=== PATIENT | male | born 1995 | race Caucasian/White ===

== ENCOUNTER 2016-06-04 07:27 | Emergency (ER) | payer SELFPAY ==
[~2016-06-04] VITALS: Wt 111.0 kg
[~2016-06-04 07:27] MED LIST: BEN25 PO; CALAMINE TOP; IBUP-1542 PO; PEN500 PO; PRED50TA PO
[2016-06-04] MEDS ORDERED: KETOROLAC 60 MG INJ IM STA (08:03)
--- NOTE | 2016-06-04 08:10 | ERD ---
ER Documentation Chief Complaint Date/Time DATE: 06/04/16 TIME: 08:07 Chief Complaint LEFT KNEE PAIN FROM A FALL YESTERDAY NO DEFORMITY. LIMITED ROM HPI This patient is a 20-year-old male with no significant medical history presenting to the emergency department for left knee pain which occurred after injury yesterday while at work. The patient states he did not see a pothole stepped in it with his right foot and fell directly onto his left knee. The patient denies head injury, loss of consciousness, or other injuries. Patient rates his pain an 8 out of 10 on the pain scale and describes it as throbbing and constant in nature. The pain is exacerbated by ambulation. The patient has taken no medication at home for pain relief. The patient denies prior injuries. The patient denies any fevers, chills, other injuries, or other symptoms at this time. ROS All systems reviewed and are negative except as per history of present illness. Medications Home Meds Active Scripts Calamine* (Calamine*) 120 Ml Lotion, 1 APPLIC TOP Q4H for RASH for 7 Days, EA Prov:AVE HERCULES PA-C 04/19/16 Diphenhydramine Hcl* (Benadryl*) 25 Mg Cap, 25 MG PO Q6, #30 CAP Prov:AVE HERCULES PA-C 04/19/16 Ibuprofen* (Ibuprofen*) 600 Mg Tablet, 600 MG PO Q6H Y for PAIN, #30 TAB Prov:MC BEGUM PA-C 12/08/15 Prednisone* (Prednisone*) 50 Mg Tablet, 50 MG PO DAILY, #5 TAB Prov:LIBAN MEZA NP 11/11/15 Ibuprofen* (Motrin*) 600 Mg Tab, 600 MG PO Q6H Y for PAIN AND OR ELEVATED TEMP, #30 TAB Prov:LIBAN MEZA NP 11/11/15 Penicillin V Potassium* (Penicillin V K*) 500 Mg Tab, 500 MG PO QID for 10 Days , TAB Prov:LIBAN MEZA NP 11/11/15 Allergies Allergies: Coded Allergies: No Known Allergy (Unverified , 03/27/14) PMhx/Soc Medical and Surgical Hx: pt denies Medical Hx, pt denies Surgical Hx History of Surgery: No Anesthesia Reaction: No Hx Neurological Disorder: No Hx Respiratory Disorders: No Hx Cardiac Disorders: No Hx Psychiatric Problems: No Hx Miscellaneous Medical Probl: No Hx Alcohol Use: No Hx Substance Use: No Hx Tobacco Use: No Smoking Status: Never smoker FmHx Noncontributory for chief complaint Physical Exam Vitals Vital Signs Date Time Temp Pulse Resp B/P Pulse Ox O2 Delivery O2 Flow Rate FiO2 06/04/16 07:30 98.7 72 21 134/85 98 Physical Exam INITIAL VITAL SIGNS: Reviewed by me. GENERAL: Alert and interactive. No acute distress. HEAD: Head is normocephalic and atraumatic. EYES: EOMI. No scleral icterus. No conjunctival injection. ENT: Moist mucosa. NECK: Supple. Full range of motion. RESPIRATORY: Normal respiratory effort. Clear breath sounds bilaterally. No wheezing, rales, or rhonchi. CV: Regular rate and rhythm. Normal S1 S2. No S3 or S4. No murmurs. ABDOMEN: Soft, non-distended, non-tender. No guarding. No rebound. No masses. EXTREMITIES: There is tenderness to palpation of the lateral joint line of the left knee. There is limited range of motion secondary to pain. There is no erythema or warmth about the joint. The right lower extremity is normal on exam. SKIN: Warm and dry. NEUROLOGIC: Alert and oriented x 4. Speech is normal. Moves all extremities equally. No motor or sensory deficits noted. Results 24 hrs Current Medications Medications (Trade) Dose Ordered Sig/Maru Route PRN Reason Start Time Stop Time Status Last Admin Dose Admin Ketorolac Tromethamine (Toradol) 60 mg ONCE STAT IM 06/04/16 08:03 06/04/16 08:05 DC 06/04/16 08:24 Procedures/MDM 20-year-old male presents secondary to complaints of left knee pain after injury yesterday while at work. Physical examination there is some mild tenderness to palpation of the lateral joint line of the left knee. There is limited range of motion secondary to pain. I have ordered a 3 view x-ray of the left knee looking for any signs of fracture or other abnormalities. The patient was given 60 mg IM Toradol in the department and was feeling improved on reevaluation. At this time I have very low suspicion for septic joint, disseminated cellulitis, septicemia, or other emergent conditions. 3 view left knee x-ray interpreted by radiologist: PROCEDURE: Left knee x-ray CLINICAL INDICATION: knee injury/pain TECHNIQUE: AP, lateral and oblique views of the left knee were obtained. COMPARISON: None FINDINGS: There is normal mineralization. No acute fracture or dislocation is seen. There are no significant degenerative changes. There is no joint effusion. There is no significant soft tissue swelling. IMPRESSION: Normal x-ray of the left knee. Primary diagnosis: Knee injury The patient was discharged home with a prescription for naproxen for mild to moderate acute pain and [place] for moderate to severe acute pain. An CAROLYN wrap was applied in the department. The patient was able to ambulate in the department and declined the need for crutches at this time. The patient agreed with the discharge plan and diagnosis. All questions and concerns were addressed. Departure Diagnosis: Primary Impression: Knee injury Condition: Stable Additional Instructions: Follow-up with your primary care physician within 1 week. Return to the emergency department immediately should you have any new or worsening symptoms, uncontrolled fevers, or other unexplained symptoms. Take all medications as directed. ASHLYN VIDAL PA-C Jun 04, 2016 08:10
--- NOTE | 2016-06-04 08:38 | RADRPT ---
PROCEDURE: Left knee x-ray CLINICAL INDICATION: knee injury/pain TECHNIQUE: AP, lateral and oblique views of the left knee were obtained. COMPARISON: None FINDINGS: There is normal mineralization. No acute fracture or dislocation is seen. There are no significant degenerative changes. There is no joint effusion. There is no significant soft tissue swelling. IMPRESSION: Normal x-ray of the left knee. RPTAT:AAJJ Simone Subramanian Physician Date Time Electronically viewed and signed by Physician Karen on 06/04/2016 08:37 TUAN/
[2016-06-04] MEDS ORDERED: HYDR-906 PO (08:48)
[2016-06-04] MEDS ORDERED: NAPR-260 PO (08:48)
== END 2016-06-04 08:59 | disposition home or self-care (01) ==
LOC: FTE 07:27
DX: S89.92XA Unspecified injury of left lower leg, initial encounter (principal); W17.2XXA Fall into hole, initial encounter; Y92.89 Other specified places as the place of occurrence of the external cause
CPT/HCPCS: 73562; 96372; 99284; J1885

== ENCOUNTER 2016-08-12 07:48 | Emergency (ER) | payer MEDICAID ==
[~2016-08-12] VITALS: Ht 170.2 cm; Wt 100.0 kg
[~2016-08-12 07:48] MED LIST changes: +HYDR-906 PO; +NAPR-260 PO
[2016-08-12 07:49] VITALS: Ht 170.2 cm; Wt 100.0 kg
[2016-08-12] MEDS ORDERED: IBUPROFEN 600 MG TAB PO ONE (08:30)
--- NOTE | 2016-08-12 08:46 | ERD ---
ER Documentation Chief Complaint Date/Time DATE: 08/12/16 TIME: 08:45 Chief Complaint pt bib self with c/o "feeling weak x 1 wk, headache x 1 wk" HPI This is a 20-year-old male presents to the ER stating that for the last week he has felt dizzy. Patient states that he wakes up in the morning and he feels a spinning sensation. This episode lasted about an hour and goes away. He then gets multiple episodes throughout the day which only lasts a few minutes, they are worse whenever he moves his head. Patient is also complaining of a right- sided headache. He does admit to some photophobia. Headache is described as throbbing in quality it is not radiating. He has not tried any pain medications. He denies any nausea or vomiting he denies any trauma to the head. He denies any loss of consciousness. Patient denies any fevers or chills. He denies any cough or cold symptoms. He is also stating that he feels very weak and fatigued over the last week. ROS 12 point review of systems was done, all negative except per HPI. Medications Home Meds Active Scripts Meclizine Hcl* (Meclizine Hcl*) 25 Mg Tablet, 25 MG PO Q8H Y for DIZZINESS for 3 Days, TAB Prov:YVES MCGRATH 08/12/16 Naproxen* (Naprosyn*) 500 Mg Tablet, 500 MG PO BID Y for PAIN AND/OR INFLAMMATION, #30 TAB Prov:YVES MCGRATH 08/12/16 Naproxen* (Naprosyn*) 500 Mg Tablet, 500 MG PO BID Y for PAIN AND/OR INFLAMMATION, #20 TAB Prov:ASHLYN VIDAL PA-C 06/04/16 Hydrocodone/Acetaminophen ([place] 5-325 Tablet) 1 Each Tablet, 1 EACH PO prn for PAIN, #7 TAB Prov:ASHLYN VIDAL PA-C 06/04/16 Calamine* (Calamine*) 120 Ml Lotion, 1 APPLIC TOP Q4H for RASH for 7 Days, EA Prov:AVE HERCULES PA-C 04/19/16 Diphenhydramine Hcl* (Benadryl*) 25 Mg Cap, 25 MG PO Q6, #30 CAP Prov:AVE HERCULES PA-C 04/19/16 Ibuprofen* (Ibuprofen*) 600 Mg Tablet, 600 MG PO Q6H Y for PAIN, #30 TAB Prov:MC BEGUM PA-C 12/08/15 Prednisone* (Prednisone*) 50 Mg Tablet, 50 MG PO DAILY, #5 TAB Prov:LIBAN MEZA NP 11/11/15 Ibuprofen* (Motrin*) 600 Mg Tab, 600 MG PO Q6H Y for PAIN AND OR ELEVATED TEMP, #30 TAB Prov:LIBAN MEZA CORN SHUCKER 11/11/15 Penicillin V Potassium* (Penicillin V K*) 500 Mg Tab, 500 MG PO QID for 10 Days , TAB Prov:LIBAN MEZA CORN SHUCKER 11/11/15 Allergies Allergies: Coded Allergies: No Known Allergy (Unverified , 03/27/14) PMhx/Soc History of Surgery: No Anesthesia Reaction: No Hx Neurological Disorder: No Hx Respiratory Disorders: No Hx Cardiac Disorders: No Hx Psychiatric Problems: No Hx Miscellaneous Medical Probl: No Hx Alcohol Use: No Hx Substance Use: No Hx Tobacco Use: No Smoking Status: Never smoker Physical Exam Vitals Vital Signs Date Time Temp Pulse Resp B/P Pulse Ox O2 Delivery O2 Flow Rate FiO2 08/12/16 07:49 98.3 74 16 137/65 99 Physical Exam GENERAL: The patient is well developed and appropriate for usual state of health , in no apparent distress. HEENT: Atraumatic. Conjunctivae are pink. Pupils equal, round, and reactive to light. Extraocular muscles are grossly intact. No nystagmus. Bilateral tympanic membranes are clear with no evidence of erythema, bulging or perforation. NECK: C-spine is soft and supple. There is no cervical lymphadenopathy. CHEST: Clear to auscultation bilaterally. There are no rales, wheezes or rhonchi. HEART: Regular rate and rhythm. No murmurs, clicks, rubs or gallops. EXTREMITIES: Equal pulses bilaterally. There is no peripheral clubbing, cyanosis or edema. No focal swelling or erythema. Full range of motion. Grossly neurovascularly intact. NEURO: Alert and oriented. Cranial nerves II through XII are intact. Motor strength in all 4 extremities with 5/5 strength. Sensation grossly intact. Normal speech and gait. Negative [place]. +2 DTRs. SKIN: There is no apparent rash or petechia. The skin is warm and dry. Result Diagram: 08/12/16 0840 08/12/16 0840 Results 24 hrs Laboratory Tests Test 08/12/16 08:40 White Blood Count 7.610^3/ul Red Blood Count 5.1610^6/ul Hemoglobin 14.9g/dl Hematocrit 44.9% Mean Corpuscular Volume 87.0fl Mean Corpuscular Hemoglobin 28.9pg Mean Corpuscular Hemoglobin Concent 33.2g/dl Red Cell Distribution Width 12.9% Platelet Count 65392^3/UL Mean Platelet Volume 10.8fl Neutrophils % 63.9% Lymphocytes % 26.2% Monocytes % 6.7% Eosinophils % 2.5% Basophils % 0.4% Nucleated Red Blood Cells % 0.0/100WBC Neutrophils # 4.910^3/ul Lymphocytes # 2.010^3/ul Monocytes # 0.510^3/ul Eosinophils # 0.210^3/ul Basophils # 0.010^3/ul Nucleated Red Blood Cells # 0.010^3/ul Urine Color LT. YELLOW Urine Clarity CLEAR Urine pH 5.5 Urine Specific [employer] >=1.030 Urine Ketones NEGATIVE Urine Nitrite NEGATIVE Urine Bilirubin NEGATIVE Urine Urobilinogen 0.2 E.U./dL Urine Leukocyte Esterase NEGATIVE Urine Hemoglobin NEGATIVE Urine Glucose NEGATIVE% Urine Total Protein NEGATIVE Sodium Level 141mmol/L Potassium Level 4.3mmol/L Chloride Level 108mmol/L Carbon Dioxide Level 24mmol/L Anion Gap 13 Blood Urea Nitrogen 13mg/dl Creatinine 0.84mg/dl Glucose Level 97mg/dl Calcium Level 9.1mg/dl Total Bilirubin 0.3mg/dl Direct Bilirubin 0.00mg/dl Indirect Bilirubin 0.3mg/dl Aspartate Amino Transf (AST/SGOT) 21IU/L Alanine Aminotransferase (ALT/SGPT) 42IU/L Alkaline Phosphatase 95IU/L Total Protein 7.2g/dl Albumin 4.3g/dl Globulin 2.90g/dl Albumin/Globulin Ratio 1.48 Current Medications Medications (Trade) Dose Ordered Sig/Maru Route PRN Reason Start Time Stop Time Status Last Admin Dose Admin Ibuprofen (Motrin) 600 mg ONCE ONCE PO 08/12/16 08:30 08/12/16 08:31 DC 08/12/16 08:40 Procedures/MDM EKG was taken [address] elevation or T-wave inversion. Read by Dr. Oliveira. Differential Diagnosis includes but is not limited to; Benign positional vertigo , labyrinthitis, vertigo, MS, acoustic neuroma, arrhythmia, anemia, hypoglycemia , infection, dehydration. At this time etiology of patient's dizziness is unknown however there is no evidence of arrhythmia, anemia, hypoglycemia, infection, dehydration. Patient's dizziness is worse with movement this may be benign positional vertigo. Episodes are short and I described as a spinning sensation. Patient will be sent home with meclizine. Regards to patient's headache it may be a migraine headache suspicion for intracranial pathology is low patient neurologically intact with no focal neurological deficits. He is afebrile and well-appearing. He does not have any meningeal signs. Patient is to follow-up with her primary care doctors within 1 to 2 days return to ER sooner if symptoms worsen. My medical decision making shared with the patient she understands and agrees with plan. Departure Diagnosis: Primary Impression: Dizziness Condition: Stable YVES MCGRATH Aug 12, 2016 08:46
[2016-08-12 09:04] LABS: ADD SCAN DIFF NO
[2016-08-12 09:07] LABS: BASOPHILS % 0.4 % (0.0-2.0); EOSINOPHILS # 0.2 10^3/ul (0.0-0.5); EOSINOPHILS % 2.5 % (0.0-7.0); HEMATOCRIT 44.9 % (42.0-52.0); HEMOGLOBIN 14.9 g/dl (14.0-18.0); LYMPHOCYTES % 26.2 % (15.0-51.0); MEAN CORPUSCULAR HEMOGLOBIN 28.9 pg (29.0-33.0); MEAN CORPUSCULAR HGB CONC 33.2 g/dl (32.0-37.0); MEAN PLATELET VOLUME 10.8 fl (7.4-10.4); MONOCYTE # 0.5 10^3/ul (0.3-0.9); MONOCYTES % 6.7 % (0.0-11.0); NEUTROPHIL # 4.9 10^3/ul (1.6-7.5); NEUTROPHILS % 63.9 % (39.0-77.0); PLATELET COUNT 237 10^3/UL (140-415); RED BLOOD COUNT 5.16 10^6/ul (4.70-6.10); RED CELL DISTRIBUTION WIDTH 12.9 % (11.5-14.5); WHITE BLOOD COUNT 7.6 10^3/ul (4.8-10.8)
[2016-08-12 09:24] LABS: ADD UMIC NO; ALBUMIN 4.3 g/dl (3.3-4.9); ALBUMIN/GLOBULIN RATIO 1.48; BILIRUBIN,INDIRECT 0.3 mg/dl (0-1.1); BILIRUBIN,TOTAL 0.3 mg/dl (0.2-1.3); CALCIUM 9.1 mg/dl (8.4-10.2); CREATININE 0.84 mg/dl (0.61-1.24); POTASSIUM 4.3 mmol/L (3.5-5.1); TOTAL PROTEIN 7.2 g/dl (6.1-8.1); URINE BILIRUBIN (Dip) NEGATIVE (NEGATIVE); URINE BLOOD (Dip) NEGATIVE (NEGATIVE); URINE COLOR LT. YELLOW (YELLOW); URINE GLUCOSE (Dip) NEGATIVE (NEGATIVE); URINE KETONES (Dip) NEGATIVE (NEGATIVE); URINE LEUKOCYTE ESTERASE (Dip) NEGATIVE (NEGATIVE); URINE NITRITE (Dip) NEGATIVE (NEGATIVE); URINE TOTAL PROTEIN (Dip) NEGATIVE (NEGATIVE); URINE UROBILINOGEN (Dip) 0.2 E.U./dL (0.1-1.0)
[2016-08-12] MEDS ORDERED: NAPR-260 PO (09:43)
[2016-08-12] MEDS ORDERED: MECL-77 PO (09:43)
== END 2016-08-12 09:49 | disposition home or self-care (01) ==
LOC: FTE 07:48
DX: R42 Dizziness and giddiness (principal)
CPT/HCPCS: 80053; 81003; 85025; 93005; Z7502; Z7610

== ENCOUNTER 2016-08-24 13:40 | Emergency (ER) | payer MEDICAID ==
[~2016-08-24] VITALS: Ht 170.2 cm; Wt 118.0 kg
[~2016-08-24 13:40] MED LIST changes: +MECL-77 PO
[2016-08-24 14:21] VITALS: Ht 170.2 cm; Wt 118.0 kg
[2016-08-24] MEDS ORDERED: DEXAMETHASONE 10 MG/ML 1 ML INJ IM ONE (16:30)
[2016-08-24] MEDS ORDERED: PENICILLIN G BENZ 1.2 MIL UNIT SYG IM ONE (16:30)
[2016-08-24] MEDS ORDERED: IBUP800T25 PO (17:40)
[2016-08-24] MEDS ORDERED: AMO500 PO (17:40)
[2016-08-24 18:11] VITALS: BP 118/62; PULSE 72; RESP 16
--- NOTE | 2016-08-24 18:18 | ERD ---
ER Documentation Chief Complaint Date/Time DATE: 08/24/16 TIME: 18:10 Chief Complaint sore throat HPI 20-year-old male patient with no significant past medical history presents to the ED complaining of sore throat that started yesterday. States that he felt like his tonsils were getting swollen last night and was coughing to clear his throat. States that it woke him up from his sleep. Denies any fever, chills, abdominal pain, nausea, vomiting, diarrhea, rashes. Patient denies any dysphagia, odynophagia, neck stiffness, neck pain. Patient states that this feels like his strep pharyngitis that was diagnosed last year. States that the antibiotics and steroids made his symptoms feel better. Denies any shortness of breath, cough. Denies any sick contacts. ROS All systems reviewed and are negative except as per history of present illness. Medications Home Meds Active Scripts Ibuprofen* (Motrin*) 800 Mg Tab, 800 MG PO Q6, #30 TAB take with food Prov:DEMOND AJ PA-C 08/24/16 Amoxicillin* (Amoxicillin*) 500 Mg Cap, 500 MG PO TID for 10 Days, CAP Prov:DEMOND AJ PA-C 08/24/16 Meclizine Hcl* (Meclizine Hcl*) 25 Mg Tablet, 25 MG PO Q8H Y for DIZZINESS for 3 Days, TAB Prov:YVES MCGRATH 08/12/16 Naproxen* (Naprosyn*) 500 Mg Tablet, 500 MG PO BID Y for PAIN AND/OR INFLAMMATION, #30 TAB Prov:YVES MCGRATH 08/12/16 Naproxen* (Naprosyn*) 500 Mg Tablet, 500 MG PO BID Y for PAIN AND/OR INFLAMMATION, #20 TAB Prov:ASHLYN VIDAL PA-C 06/04/16 Hydrocodone/Acetaminophen ([place] 5-325 Tablet) 1 Each Tablet, 1 EACH PO prn for PAIN, #7 TAB Prov:ASHLYN VIDAL PA-C 06/04/16 Calamine* (Calamine*) 120 Ml Lotion, 1 APPLIC TOP Q4H for RASH for 7 Days, EA Prov:AVE HERCULES PA-C 04/19/16 Diphenhydramine Hcl* (Benadryl*) 25 Mg Cap, 25 MG PO Q6, #30 CAP Prov:AVE HERCULESLinnea COLEMAN 04/19/16 Ibuprofen* (Ibuprofen*) 600 Mg Tablet, 600 MG PO Q6H Y for PAIN, #30 TAB Prov:JENNIFERRADHADAYANAMC Monroe Mando COLEMAN 12/08/15 Prednisone* (Prednisone*) 50 Mg Tablet, 50 MG PO DAILY, #5 TAB Prov:LIBAN MEZA RECRUITER MANAGER 11/11/15 Ibuprofen* (Motrin*) 600 Mg Tab, 600 MG PO Q6H Y for PAIN AND OR ELEVATED TEMP, #30 TAB Prov:LIBAN MEZA RECRUITER MANAGER 16 Penicillin V Potassium* (Penicillin V K*) 500 Mg Tab, 500 MG PO QID for 10 Days , TAB Prov:LIBAN MEZA RECRUITER MANAGER 11/11/15 Allergies Allergies: Coded Allergies: No Known Allergy (Unverified , 03/27/14) PMhx/Soc History of Surgery: No Anesthesia Reaction: No Hx Neurological Disorder: No Hx Respiratory Disorders: No Hx Cardiac Disorders: No Hx Psychiatric Problems: No Hx Miscellaneous Medical Probl: No Hx Alcohol Use: No Hx Substance Use: No Hx Tobacco Use: No Physical Exam Vitals Vital Signs Date Time Temp Pulse Resp B/P Pulse Ox O2 Delivery O2 Flow Rate FiO2 08/24/16 18:11 72 16 118/62 99 Room Air 08/24/16 14:21 98.6 72 18 145/80 100 Physical Exam Const: [id number], well-nourished. In no acute distress. Head: Atraumatic, normocephalic Eyes: Normal Conjunctiva without injection. No purulent discharge. PERRL. EOMI ENT: Normal external ear. Ear canal without erythema. Tympanic membrane pearly lui without effusion or bulging. Nasal canal clear with normal turbinates. Moist oropharynx with left tonsillar exudate. Erythematous pharynx. Uvula midline. No drooling. No trismus. Neck: Full range of motion. No meningismus. No cervical lymphadenopathy. Resp: Clear to auscultation bilaterally. No wheezing, rhonchi, rales, or crackles. No accessory muscle use. No retractions. Cardio: Regular rate and rhythm. No murmurs, rubs or gallops. Abd: Soft, non tender, non distended. Normal bowel sounds. No palpable masses. No rebound tenderness. No guarding. Skin: No petechiae or rashes Back: No midline tenderness. No CVA tenderness. Ext: No cyanosis, or edema. Neur: Awake and alert. Psych: Normal Mood and Affect Results 24 hrs Current Medications Medications (Trade) Dose Ordered Sig/Maru Route PRN Reason Start Time Stop Time Status Last Admin Dose Admin Penicillin G Benzathine (Bicillin La) 1,200,000 units ONCE ONCE IM 08/24/16 16:30 4 16:31 DC 08/24/16 17:01 Dexamethasone (Decadron) 10 mg ONCE ONCE IM 08/24/16 16:30 08/24/16 16:31 DC 08/24/16 17:01 Procedures/MDM 20-year-old male patient with no significant past medical history presents to the ED complaining of a sore throat that started last night. Patient is afebrile and nontoxic-appearing. Patient has normal vital signs. Patient's physical exam is consistent with presumed strep pharyngitis. Based on [employer]'s Criteria, patient has reported fever at home, left tonsillar exudate, no cough. Patient was treated here in the ED with Decadron and Penicillin G IM with improvement. Patient is appropriate for outpatient antibiotics. Patient's physical exam include lungs which were clear to auscultation and a normal pulse oximetry. Bilateral ears pearly novak. No tenderness to palpation of tragus or mastoid. Low suspicion for mastoiditis, otitis externa, otitis media. Patient is speaking in full sentences. There is a low suspicion for pneumonia, epiglottitis, croup, sinusitis, peritonsillar abscess, hands foot mouth disease , Venancio's angina, retropharyngeal abscess, meningitis, sepsis, acute abdomen or other emergent conditions. Discharge medications: Ibuprofen, Amoxicillin Follow up with primary care physician in 1-2 days. Instructed patient to return to the ED sooner for any worsening symptoms. Patient's questions were answered. Patient understood and agreed with discharge plan. Patient discharged stable. Departure Diagnosis: Primary Impression: Pharyngitis Pharyngitis/tonsillitis etiology: unspecified etiology Qualified Code: J02.9 - Pharyngitis, unspecified etiology Condition: Stable Patient Instructions: Pharyngitis, Strep (Presumed) Referrals: [facility] YOU HAVE RECEIVED A MEDICAL SCREENING EXAM AND THE RESULTS INDICATE THAT YOU DO NOT HAVE A CONDITION THAT REQUIRES URGENT TREATMENT IN THE EMERGENCY DEPARTMENT. FURTHER EVALUATION AND TREATMENT OF YOUR CONDITION CAN WAIT UNTIL YOU ARE SEEN IN YOUR DOCTORS OFFICE WITHIN THE NEXT 1-2 DAYS. IT IS YOUR RESPONSIBILITY TO MAKE AN APPOINTMENT FOR FOLOW-UP CARE. IF YOU HAVE A PRIMARY DOCTOR --you should call your primary doctor and schedule an appointment IF YOU DO NOT HAVE A PRIMARY DOCTOR YOU CAN CALL OUR PHYSICIAN REFERRAL HOTLINE AT IF YOU CAN NOT AFFORD TO SEE A PHYSICIAN YOU CAN CHOSE FROM THE FOLLOWING [facility] [address] [employer] [address] [facility] [address] [facility] [facility] [address] [facility] [address] [facility] [address] [facility]. [facility] [address] [facility]. [facility] YOU HAVE RECEIVED A MEDICAL SCREENING EXAM AND THE RESULTS INDICATE THAT YOU DO NOT HAVE A CONDITION THAT REQUIRES URGENT TREATMENT IN THE EMERGENCY DEPARTMENT. FURTHER EVALUATION AND TREATMENT OF YOUR CONDITION CAN WAIT UNTIL YOU ARE SEEN IN YOUR DOCTORS OFFICE WITHIN THE NEXT 1-2 DAYS. IT IS YOUR RESPONSIBILITY TO MAKE AN APPOINTMENT FOR FOLOW-UP CARE. IF YOU HAVE A PRIMARY DOCTOR --you should call your primary doctor and schedule and appointment IF YOU DO NOT HAVE A PRIMARY DOCTOR YOU CAN CALL OUR PHYSICIAN REFERRAL HOTLINE AT . IF YOU CAN NOT AFFORD TO SEE A PHYSICIAN YOU CAN CHOSE FROM THE FOLLOWING [facility]: [facility] [address] [place] [address] [facility] [address] [place] [address] [facility] [address] [place] [address] [facility] URGENT C[facility]/SPECIALTIES Additional Instructions: Call your primary care doctor TOMORROW for an appointment during the next 2-3 days.See the doctor sooner or return here if your condition worsens before your appointment time. DEMOND AJ PA-C Aug 24, 2016 18:18
== END 2016-08-24 18:12 | disposition home or self-care (01) ==
LOC: E/R 13:40 → FTE 18:12
DX: J02.9 Acute pharyngitis, unspecified (principal)
CPT/HCPCS: 96372; J0561; J1100; Z7502

== ENCOUNTER 2017-08-24 18:28 | Emergency (ER) | END 2017-08-24 22:35 | disposition home or self-care (01) ==

== ENCOUNTER 2018-10-05 11:22 | Emergency (ER) | payer SELFPAY ==
[~2018-10-05] VITALS: Ht 170.2 cm; Wt 122.0 kg
[~2018-10-05 11:22] MED LIST changes: +AMOX500C2 PO; +AZIT250T PO; +DIC20 PO; +FEXO180T13 PO; +HYDR-4011 PO; -HYDR-906 PO; +IBUP800T48 PO; -NAPR-260 PO; +NAPR-985 PO; +ONDA4TAB14 PO; -PEN500 PO; +PENI500T PO
[2018-10-05 11:32] VITALS: BP 168/70; PULSE 68; RESP 18; Ht 170.2 cm; Wt 122.0 kg
[2018-10-05] MEDS ORDERED: IBUP-1542 PO (13:45)
[2018-10-05] MEDS ORDERED: AMOX500C2 PO (13:45)
--- NOTE | 2018-10-05 13:47 | ERD ---
ER Documentation Chief Complaint Chief Complaint sore throat states has strepp feeling fatigue HPI 23-year-old male presents with sore throat worsening for the last 3 to 4 days. Denies fever chills, cough, vomiting, abdominal pain. Has mild body aches. He noted some redness and white spots on his tonsils. ROS All systems reviewed and are negative except as per history of present illness. Medications Home Meds Active Scripts Ibuprofen* (Motrin*) 600 Mg Tab, 600 MG PO Q6, #15 TAB Prov:LILLY VINES MD 10/05/18 Amoxicillin* (Amoxicillin*) 500 Mg Cap, 500 MG PO TID for 10 Days, CAP Prov:LILLY VINES MD 10/05/18 Fexofenadine Hcl* (Fexofenadine Hcl*) 180 Mg Tablet, 180 MG PO DAILY, #5 TAB Prov:TUNDE DELVALLE MD 06/10/18 Ibuprofen* (Motrin*) 600 Mg Tab, 600 MG PO Q8, #15 TAB Prov:TUNDE DELVALLE MD 06/10/18 Azithromycin* (Zithromax*) 250 Mg Tablet, 250 MG PO .ZPACK DIRECTED, #6 TAB TAKE 500 MG (2 TABS) THE FIRST DAY THEN 250 MG (1 TAB) DAYS 2-5 Prov:TUNDE DELVALLE MD 06/10/18 Ondansetron (Ondansetron Odt) 4 Mg Tab.rapdis, 4 MG PO Q6H PRN for NAUSEA AND/OR VOMITING, #20 TAB Prov:LIBAN MEZA NP 08/24/17 Ibuprofen* (Motrin*) 600 Mg Tab, 600 MG PO Q6H PRN for PAIN AND OR ELEVATED TEMP, #30 TAB Prov:LIBAN MEZA NP 08/24/17 Dicyclomine HCl (Dicyclomine HCl) 20 Mg Tablet, 1 TAB PO Q6H, #20 Prov:LIBAN MEZA NP 08/24/17 Ibuprofen* (Motrin*) 800 Mg Tab, 800 MG PO Q6, #30 TAB take with food Prov:DEMOND AJ PA-C 08/24/16 Amoxicillin* (Amoxicillin*) 500 Mg Cap, 500 MG PO TID for 10 Days, CAP Prov:DEMOND AJC 08/24/16 Meclizine Hcl* (Meclizine Hcl*) 25 Mg Tablet, 25 MG PO Q8H PRN for DIZZINESS for 3 Days, TAB Prov:YVES MCGRATH 08/12/16 Naproxen* (Naprosyn*) 500 Mg Tablet, 500 MG PO BID PRN for PAIN AND/OR INFLAMMATION, #30 TAB Prov:YVES MCGRATH 08/12/16 Naproxen* (Naprosyn*) 500 Mg Tablet, 500 MG PO BID PRN for PAIN AND/OR INF LAMMATION, #20 TAB Prov:ASHLYN VIDAL PA-C 06/04/16 Hydrocodone/Acetaminophen ([place] 5-325 Tablet) 1 Each Tablet, 1 EACH PO prn for PAIN, #7 TAB Prov:ASHLYN VIDALC 06/04/16 Calamine* (Calamine*) 120 Ml Lotion, 1 APPLIC TOP Q4H for RASH for 7 Days, EA Prov:AVE HERCULESC 04/19/16 Diphenhydramine Hcl* (Benadryl*) 25 Mg Cap, 25 MG PO Q6, #30 CAP Prov:AVE HERCULESC 04/19/16 Ibuprofen* (Ibuprofen*) 600 Mg Tablet, 600 MG PO Q6H PRN for PAIN, #30 TAB Prov:MC BEGUMC 12/08/15 Prednisone* (Prednisone*) 50 Mg Tablet, 50 MG PO DAILY, #5 TAB Prov:LIBAN MEZA NP 11/11/15 Ibuprofen* (Motrin*) 600 Mg Tab, 600 MG PO Q6H PRN for PAIN AND OR ELEVATED TEMP, #30 TAB Prov:LIBAN MEZA NP 11/11/15 Penicillin V Potassium* (Penicillin V K*) 500 Mg Tab, 500 MG PO QID for 10 Days, TAB Prov:LIBAN MEZA NP 11/11/15 Allergies Allergies: Coded Allergies: No Known Allergy (Unverified , 03/27/14) PMhx/Soc History of Surgery: No Anesthesia Reaction: No Hx Neurological Disorder: No Hx Respiratory Disorders: No Hx Cardiac Disorders: No Hx Psychiatric Problems: No Hx Miscellaneous Medical Probl: No Hx Alcohol Use: No Hx Substance Use: No Hx Tobacco Use: No FmHx Family History: No diabetes, No coronary disease, No other Physical Exam Vitals Vital Signs Date Temp Pulse Resp B/P (MAP) Pulse Ox O2 O2 Flow FiO2 Time Delivery Rate 10/05/18 97.8 68 18 168/70 98 11:32 (102) Physical Exam Const: No acute distress Head: Atraumatic Eyes: Normal Conjunctiva ENT: Normal External Ears, Nose and Mouth. Tonsils 3+ with erythema and exudate. Uvula midline and airway patent. Tender anterior cervical lymph nodes. Neck: Full range of motion. No meningismus. Resp: Clear to auscultation bilaterally Cardio: Regular rate and rhythm, no murmurs Abd: Soft, non tender, non distended. Normal bowel sounds Skin: No petechiae or rashes Back: No midline or flank tenderness Ext: No cyanosis, or edema Neur: Awake and alert Psych: Normal Mood and Affect Results 24 hrs Current Medications Medications Dose Sig/Maru Start Time Status Last (Trade) Ordered Route PRN Stop Time Admin Dose Reason Admin 12 mg ONCE ONCE 10/05/18 DC 10/05/18 Dexamethasone PO 14:00 13:49 (Decadron) 10/05/18 14:01 Ibuprofen 600 mg ONCE ONCE 10/05/18 DC 10/05/18 (Motrin) PO 14:00 13:45 10/05/18 14:01 Procedures/MDM Patient presents with signs of worsening sore throat and exudative pharyngitis. Is no signs of abscess, airway obstruction, additional complications. He will be treated with Decadron 12 mg by mouth for the size of his tonsils and lymphadenitis and amoxicillin ibuprofen at home for empiric treatment for strep. The patient was stable with no new complaints during the ER course. Clinically, there is no current evidence to suggest meningitis, sepsis, acute abdomen, pn eumonia, stroke, acute coronary syndrome, pulmonary embolism, aortic dissection or any other emergent condition appearing to require further evaluation or hospitalization. Patient counseled regarding my diagnostic impression and care plan. Prior to discharge all questions answered. Pt agrees with treatment plan and understands strict return precautions. Pt is instructed to follow up with primary care provider within 24-48 hours. Precautionary instructions provided including instructions to return to the ER if not improving or for any worsening or changing symptoms or concerns. Disclaimer: Inadvertent spelling and grammatical errors are likely due to EHR/dictation software use and do not reflect on the overall quality of patient care. Also, please note that the electronic time recorded on this note does not necessarily reflect the actual time of the patient encounter. Departure Diagnosis: Primary Impression: Sore throat Condition: Stable Patient Instructions: Pharyngitis, Strep (Presumed) Referrals: NO PRIMARY,CARE PHYSICIAN (PCP) Additional Instructions: Recheck for new or worsening symptoms with primary care doctor. LILLY VINES MD October 05, 2018 13:46
[2018-10-05] MEDS ORDERED: IBUPROFEN 600 MG TAB PO ONE (14:00)
[2018-10-05] MEDS ORDERED: DEXAMETHASONE 4 MG TAB PO ONE (14:00)
== END 2018-10-05 14:14 | disposition home or self-care (01) ==
LOC: FTE 11:22
DX: J02.9 Acute pharyngitis, unspecified (principal)
CPT/HCPCS: 99283